=== PATIENT | female | born 1980 | race Caucasian/White ===

== ENCOUNTER 2022-06-01 16:41 | Emergency (ER) | payer OTHER, SELFPAY ==
[2022-06-01 16:50] VITALS: BP 135/95; PULSE 90; RESP 18; TEMP 36.7; O2SAT 99; BMI 19.1
[2022-06-01 17:05] VITALS: BP 135/95; PULSE 90; RESP 18; TEMP 36.7; O2SAT 99; BMI 19.1
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
[2022-06-01 17:50] VITALS: BP 135/95; PULSE 90; RESP 18; TEMP 36.7; O2SAT 99
== END 2022-06-01 17:55 | disposition home or self-care (01) ==
PROVIDERS: Emergency Provider Emergency Medicine; PCP Internal Medicine
DX: S20.213A Contusion of bilateral front wall of thorax, initial encounter (principal)
CPT/HCPCS: 71111; 99212; G0463